=== PATIENT | male | born 1990 | race Caucasian/White ===

== ENCOUNTER 2020-07-17 10:45 | Day surgery (SDC) | payer BC, SELFPAY ==
[~2020-07-17] VITALS: Ht 182.9 cm; Wt 87.3 kg
[~2020-07-17 10:45] MED LIST: CRESTOR20 MG PO; FLONASE ALLERG9.9 ML NAS
--- NOTE | 2020-07-17 14:23 | NUR ---
07/17/20 1423 Primitivo,Susan 1416 PT ARRIVED TO PACU ON RA, VSS. PT ASLEEP. RESP EVEN AND UNLABORED.
--- NOTE | 2020-07-18 07:47 | OR ---
[facility] [address], [place] [address] Signed DATE OF OPERATION: 07/17/2020 SURGEON: Jaleel Fisher MD PREOPERATIVE DIAGNOSIS: Pilonidal cyst with sinus tract. POSTOPERATIVE DIAGNOSIS: Pilonidal cyst with sinus tract. PROCEDURE: Pilonidal cystectomy. ESTIMATED BLOOD LOSS: None. INDICATIONS: Jose is a 30-year-old gentleman who noticed drainage from the superior aspect of his gluteal crease. It was just ever so slightly to the right of the midline. He said he has had it for at least eight months. He noticed it when he was sled riding in the snow with his family. He said he has been to our urgent care clinic twice for the antibiotics. He said it seems to help, but it never goes completely away. As a result, he went to his primary care provider. There was granulation tissue at the end of the sinus tract leading back to his pilonidal cyst. Consequently, he was asked to see me as a local general surgeon. In the office I met with Jose and explained to him the concept of a pilonidal cyst along with the sinus tract. That sinus tract will be completely full of granulation tissue and has to be completely excised, allow this to heal in secondarily. He understands the nature of that surgery. He understands there is risk including, but not limited to bleeding, infection, scarring, change in contour of the skin as well as recurrent pilonidal cyst. He had expressed understanding and wished to proceed. PROCEDURE NOTE: Jose was given a saddle block by our nurse manager operations and procurement. After this, he was taken in the operating room and placed in the prone ena-knife position with appropriate padding and monitoring. He was given preoperative antibiotics along with SCDs. Heparin was given after the saddle block. He was given monitored anesthesia care per our nurse manager operations and procurement. He was then prepped and draped in usual sterile fashion. We could easily see a couple of pits in the midline as well as the sinus tract superior to that by about 3 cm ever so slightly to the right of the midline. A lacrimal probe was placed in the Electronically Signed By: JALEEL FISHER MD 07/18/20 0747 PATIENT NAME: JOSE HINOJOSA OPERATIVE REPORT DATE OF : [birth year] REPORT #: [id number] PHYSICIAN: JALEEL FISHER MD PCP: WILLIAM ALCOCER MD REPORT IS CONFIDENTIAL AND NOT TO BE RELEASED WITHOUT AUTHORIZATION [facility] [address], [place] [address] Signed sinus tract and went directly underneath the pits. We used our 15 blade knife to make an elliptical incision to include the sinus tract and pits in the midline. The cautery was then used to remove the skin and subcutaneous tissues and the entire length of that sinus tract. Several long hairs were also involved with the pits in the midline. All the surrounding fat was quite healthy. After this, local anesthetic was injected into the wound. The wound was irrigated and suctioned out until clear. The wound was then packed with normal saline soaked gauze and covered with dry ABD and mesh underwear. Jose was then rotated into the supine position on his hospital bed and taken into recovery room in stable condition. Jaleel Fisher MD ALB/MODL /[id number] cc: MD William Cohen MD Copies: JALEEL FISHER MD, ROBERT D DMD ~ Electronically Signed By: JALEEL FISHER MD 07/18/20 0747 PATIENT NAME: JOSE HINOJOSA OPERATIVE REPORT DATE OF : [birth year] REPORT #: [id number] PHYSICIAN: JALEEL FISHER MD PCP: WILLIAM ALCOCER MD REPORT IS CONFIDENTIAL AND NOT TO BE RELEASED WITHOUT AUTHORIZATION
== END 2020-07-17 15:10 | disposition home or self-care (01) ==
LOC: DS 10:45
PROVIDERS: ATTEND Colon & Rectal Surgery
PROC: 0JB90ZZ Excision of Buttock Subcutaneous Tissue and Fascia, Open Approach (ICD-10-PCS; principal; 2020-07-17 13:00)
DX: L05.91 Pilonidal cyst without abscess (principal); Z87.442 Personal history of urinary calculi
CPT/HCPCS: 00300; J0690; J1644; J1885; J2001; J2250; J2405; J2704; J7121